=== PATIENT | female | born 1970 | race Caucasian/White ===

== ENCOUNTER → 2017-06-24 | Outpatient (CLI) | payer MEDICARE, OTHER ==
--- NOTE | 2017-06-24 14:24 | XR ---
EXAMINATION TYPE: XR chest 2V DATE OF EXAM: 06/24/2017 COMPARISON: Prior chest x-ray is unavailable HISTORY: Bronchitis TECHNIQUE: Frontal and lateral views of the chest are obtained. FINDINGS: There is no focal air space opacity, pleural effusion, or pneumothorax seen. The cardiac silhouette size is within normal limits. Lung volumes are increased. Bronchial wall thickening is radha pected. The osseous structures are remarkable for left clavicular fracture which is healed in bayon et apposition. IMPRESSION: Correlate for bronchitis, reactive airways disease.
== END ==
LOC: RADXRMAIN 11:56
PROVIDERS: ATTEND Internal Medicine
DX: J20.9 Acute bronchitis, unspecified (principal)
CPT/HCPCS: 71020

== ENCOUNTER → 2018-05-31 | Outpatient (CLI) | payer MEDICARE ==
[2018-05-31 13:27] VITALS: BP 120/72; PULSE 99; RESP 16; TEMP 98.1
== END ==
LOC: PROCWHC3 12:37
PROVIDERS: ATTEND Internal Medicine Infectious Disease
DX: K94.19 Other complications of enterostomy (principal); L24.9 Irritant contact dermatitis, unspecified cause
CPT/HCPCS: 99214

== ENCOUNTER → 2019-02-14 | Outpatient (CLI) | payer MEDICARE, OTHER ==
--- NOTE | 2019-02-14 13:39 | XR ---
EXAMINATION TYPE: XR chest 2V DATE OF EXAM: 02/14/2019 COMPARISON: NONE TECHNIQUE: PA and lateral views submitted. HISTORY: Tobacco use FINDINGS: The lungs are clear and there is no pneumothorax, pleural effusion, or focal pneumonia. Hyperinflat ion the lungs. Hypertrophic and degenerative change of the spine. Chronic left clavicular fracture. IMPRESSION: 1. No acute process. Hyperinflation suggests COPD. Correlate clinically.
== END | disposition home or self-care (01) ==
LOC: RADXRMAIN 13:13
PROVIDERS: ATTEND Internal Medicine
DX: Z72.0 Tobacco use (principal)
CPT/HCPCS: 71046

== ENCOUNTER 2019-02-24 13:33 | Emergency (ER) | payer MEDICARE, OTHER ==
[2019-02-24 14:19] VITALS: BP 122/72; TEMP 98.3
[2019-02-24] MEDS ORDERED: LIDOCAINE 1% INJ 10MG/ML (20 ML MDV) SQ ONE (15:42)
[2019-02-24] MEDS ORDERED: LIDOCAINE/EPINEPHR/TETRACAINE 5 ML BOTTLE TOPICAL ONE (15:52)
[2019-02-24] MEDS ORDERED: CEPHALEXIN 500MG STARTER PACK 4 CAP BTL PO STA (16:10)
[2019-02-24] MEDS ORDERED: SULFAMETH-TMP DS STARTER PACK 2 TAB BTL PO STA (16:10)
--- NOTE | 2019-02-24 16:29 | ED ---
General Adult HPI - General Chief complaint: Skin/Abscess/Foreign Body Stated complaint: lump under arm Time Seen by Provider: 02/24/19 15:24 Source: patient Mode of arrival: ambulatory Limitations: no limitations - History of Present Illness Initial comments: Patient is a 48-year-old who presents emergency Department with a lesion in the left axilla. Patient reports discretionary 2 days ago and when she woke up this when she noticed tenderness and induration in the area. Patient reports the pain is a 9 and is alleviated with palpation and exacerbated with palpation. Patient reports the pain is stabbing and is worse with hot showers. Patient denies any drainage from the site. Patient denies nausea, vomiting, fever, headache, chest pain just an his shortness of breath. Patient denies taking medication to relieve the pain. - Related Data Home Medications Medication Instructions Recorded Confirmed ARIPiprazole [Abilify] 10 mg PO DAILY 05/23/18 05/31/18 ALPRAZolam [Xanax] 0.5 mg PO HS PRN 05/31/18 05/31/18 Albuterol Inhaler [Ventolin Hfa 2 puff INHALATION QID PRN 05/31/18 05/31/18 Inhaler] Citalopram Hydrobromide [CeleXA] 40 mg PO DAILY 05/31/18 05/31/18 Dextroamphetamine/Amphetamine 30 mg PO BID 05/31/18 05/31/18 [Adderall] Fluticasone Nasal [place] [Flonase 1 spray NASAL BID 05/31/18 05/31/18 Nasal [place]] Ibuprofen [Motrin] 800 mg PO DAILY PRN 05/31/18 05/31/18 Loratadine [Claritin] 10 mg PO DAILY 05/31/18 05/31/18 Omeprazole [PriLOSEC] 40 g PO DAILY 05/31/18 05/31/18 lamoTRIgine [LaMICtal] 50 mg PO BID 05/31/18 05/31/18 Previous Rx's Medication Instructions Recorded Cephalexin [Keflex] 500 mg PO Q6HR #40 cap 02/24/19 Sulfamethox-Tmp 800-160Mg [Bactrim 1 each PO Q12HR #20 tab 02/24/19 Ds] Allergies Allergy/AdvReac Type Severity Reaction Status Date / Time aspirin Allergy Anaphylaxis Verified 02/24/19 14:19 polyethylene glycol Allergy Anaphylaxis Verified 02/24/19 14:19 [From Golytely] polyethylene glycol 3350 Allergy Anaphylaxis Verified 02/24/19 14:19 [From Golytely] potassium chloride Allergy Anaphylaxis Verified 02/24/19 14:19 [From Golytely] sodium [From Golytely] Allergy Anaphylaxis Verified 02/24/19 14:19 sodium bicarbonate Allergy Anaphylaxis Verified 02/24/19 14:19 [From Golytely] sodium chloride Allergy Anaphylaxis Verified 02/24/19 14:19 [From Golytely] sodium sulfate Allergy Anaphylaxis Verified 02/24/19 14:19 [From Golytely] Review of Systems ROS Statement: Those systems with pertinent positive or pertinent negative responses have been documented in the HPI. ROS Other: All systems not noted in ROS Statement are negative. Past Medical History Past Medical History: Asthma, GERD/Reflux, Osteoarthritis (OA) Additional Past Medical History / Comment(s): bulging and ruptured disc lumbar spine, crohns disease. Sinus problems. History of Any Multi-Drug Resistant Organisms: None Reported Past Surgical History: Bowel Resection Additional Past Surgical History / Comment(s): ILEOSTOMY. Past Anesthesia/Blood Transfusion Reactions: No Reported Reaction Past Psychological History: ADD/ADHD, Anxiety, Bipolar, Depression, PTSD Smoking Status: Current every day smoker - Past Family History Father Family Medical History: Cancer, Coronary Artery Disease (CAD) Mother Family Medical History: AFIB General Exam - General Exam Comments Initial Comments: General: Well-developed well-nourished distress HEENT: Normocephalic/atraumatic, PERLL, Neck: Supple, nontender, trachea midline Chest/Lungs: Normal respirations, (inferior to the left axilla measuring 4 x 4 centimeters of erythema and 3 cm diameter of induration. 1 cm of fluctuance and no discharge. Cardiac: Regular rate and rhythm, normal S1-S2, no murmurs rubs or gallops Abdomen/GI: Soft nontender, bowel sounds equal or quadrant x4, no guarding, no rebound no CVA tenderness Musculoskeletal: Nontender, full range of motion, no edema, strength equal bilaterally Skin: Warmth, no rashes or lesions, no cyanosis or diaphoresis Neurologic: AAO x 3, CN 2-12 intact, Psychiatric: Mood and affect normal, judgment normal Limitations: no limitations Course Vital Signs 02/24/19 02/24/19 14:17 16:47 Temperature 98.3 F Pulse Rate 98 85 Respiratory 16 18 Rate Blood Pressure 122/72 O2 Sat by Pulse 99 97 Oximetry Procedures - Incision & Drainage Consent Obtained: verbal consent Indication: abscess Site: other (Axilla left) Amount (mLs): 1 (LET) I&D Cleaning Method: Alcohol Wipe Sterile Field Used?: No Scalpel Used: #11 Needle Aspiration Performed?: No Irrigation Performed?: No I&D Drainage Obtained: Pus, Blood Culture Obtained?: No Patient Tolerated Procedure: well Medical Decision Making - Medical Decision Making Patient is a 48-year-old male presents emergency Department with a lesion on the left inferior axilla. The abscess was drained and a lot of pus was removed. No packing is needed. Patient reports that she feels much better after the incision and drainage. Patient was placed on Bactrim and Keflex. Patient advised to follow with primary care. Patient advised to return to emergency Department symptoms worsen. Patient advised to follow proper wound care instructions. Case discussed with physician. Disposition Clinical Impression: Skin abscess Disposition: HOME SELF-CARE Condition: Stable Instructions (If sedation given, give patient instructions): Abscess Incision and Drainage (ED), Abscess (ED) Additional Instructions: Please follow proper wound care structures. Please take prescribed medication as directed. Please follow-up with primary care. Please return to emergency department as of this worsen. Prescriptions: Sulfamethox-Tmp 800-160Mg [Bactrim Ds] 1 each PO Q12HR #20 tab Cephalexin [Keflex] 500 mg PO Q6HR #40 cap Is patient prescribed a controlled substance at d/c from ED?: No Referrals: Michel Tang DO [Primary Care Provider] - 1-2 days Time of Disposition: 16:30
[2019-02-24 16:48] VITALS: PULSE 85; RESP 18
== END 2019-02-24 16:47 | disposition home or self-care (01) ==
LOC: EC 13:33
DX: L02.412 Cutaneous abscess of left axilla (principal); J45.909 Unspecified asthma, uncomplicated; K21.9 Gastro-esophageal reflux disease without esophagitis; F90.9 Attention-deficit hyperactivity disorder, unspecified type; F41.9 Anxiety disorder, unspecified; F32.9 Major depressive disorder, single episode, unspecified; F43.10 Post-traumatic stress disorder, unspecified; F17.200 Nicotine dependence, unspecified, uncomplicated; Z79.899 Other long term (current) drug therapy; Z88.6 Allergy status to analgesic agent; Z88.8 Allergy status to other drugs, medicaments and biological substances; Z53.29 Procedure and treatment not carried out because of patient's decision for other reasons
CPT/HCPCS: 10060; 99283

== ENCOUNTER 2022-04-08 11:10 | Emergency (ER) | payer MEDICARE, OTHER ==
[2022-04-08 12:04] VITALS: TEMP 98.3
[2022-04-08] MEDS ORDERED: ORPHENADRINE 30 MG/ML 2 ML VIAL IM STA (12:10)
[2022-04-08] MEDS ORDERED: HYDROcodone/APAP 5-325MG 1 EACH TAB PO STA (12:11)
--- NOTE | 2022-04-08 12:16 | ED ---
Upper Extremity HPI - General Chief Complaint: Extremity Injury, Upper Stated Complaint: fell - lt arm injury Time Seen by Provider: 04/08/22 12:05 Source: patient Mode of arrival: wheelchair - History of Present Illness Initial Comments: 51-year-old well-appearing female presents to the emergency room with complaints of slipping on a wet step and sliding down a flight of stairs on her buttocks. Patient states that she has left arm pain after hitting it on the railing which gets worse with movement. She also states her tailbone hurts. She is ambulatory with steady gait. Denies hitting her head, no other injuries. Complaint: Injury to:: left, arm -: hour(s) (2) Other Extremity Injury: Arm: Left Severity scale (1-10): 10 Improves With: immobilization Worsens With: movement of extremity Context: fall (Slipped on a step and slid down flight of stairs) Associated Symptoms: other (left buttock pain and tailbone pain) - Related Data Home Medications Medication Instructions Recorded Confirmed ARIPiprazole [Abilify] 10 mg PO DAILY 05/23/18 05/31/18 ALPRAZolam [Xanax] 0.5 mg PO HS PRN 05/31/18 05/31/18 Albuterol Inhaler [Ventolin Hfa 2 puff INHALATION QID PRN 05/31/18 05/31/18 Inhaler] Citalopram Hydrobromide [CeleXA] 40 mg PO DAILY 05/31/18 05/31/18 Dextroamphetamine/Amphetamine 30 mg PO BID 05/31/18 05/31/18 [Adderall] Fluticasone Nasal [place] [Flonase 1 spray NASAL BID 05/31/18 05/31/18 Nasal [place]] Ibuprofen [Motrin] 800 mg PO DAILY PRN 05/31/18 05/31/18 Loratadine [Claritin] 10 mg PO DAILY 05/31/18 05/31/18 Omeprazole [PriLOSEC] 40 g PO DAILY 05/31/18 05/31/18 lamoTRIgine [LaMICtal] 50 mg PO BID 05/31/18 05/31/18 Previous Rx's Medication Instructions Recorded Cephalexin [Keflex] 500 mg PO Q6HR #40 cap 02/24/19 Sulfamethox-Tmp 800-160Mg [Bactrim 1 each PO Q12HR #20 tab 02/24/19 Ds] Cyclobenzaprine [Flexeril] 10 mg PO TID PRN #15 tab 04/08/22 Ibuprofen [Motrin] 800 mg PO Q6HR #30 tab 04/08/22 Allergies Allergy/AdvReac Type Severity Reaction Status Date / Time aspirin Allergy Anaphylaxis Verified 02/24/19 14:19 polyethylene glycol Allergy Anaphylaxis Verified 02/24/19 14:19 [From Golytely] polyethylene glycol 3350 Allergy Anaphylaxis Verified 02/24/19 14:19 [From Golytely] potassium chloride Allergy Anaphylaxis Verified 02/24/19 14:19 [From Golytely] sodium [From Golytely] Allergy Anaphylaxis Verified 02/24/19 14:19 sodium bicarbonate Allergy Anaphylaxis Verified 02/24/19 14:19 [From Golytely] sodium chloride Allergy Anaphylaxis Verified 02/24/19 14:19 [From Golytely] sodium sulfate Allergy Anaphylaxis Verified 02/24/19 14:19 [From Golytely] Review of Systems ROS Statement: Those systems with pertinent positive or pertinent negative responses have been documented in the HPI. ROS Other: All systems not noted in ROS Statement are negative. Past Medical History Past Medical History: Asthma, GERD/Reflux, Osteoarthritis (OA) Additional Past Medical History / Comment(s): bulging and ruptured disc lumbar spine, crohns disease. Sinus problems. History of Any Multi-Drug Resistant Organisms: None Reported Past Surgical History: Bowel Resection Additional Past Surgical History / Comment(s): ILEOSTOMY. Past Anesthesia/Blood Transfusion Reactions: No Reported Reaction Past Psychological History: ADD/ADHD, Anxiety, Bipolar, Depression, PTSD Smoking Status: Current every day smoker Past Alcohol Use History: None Reported Past Drug Use History: Marijuana - Past Family History Father Family Medical History: Cancer, Coronary Artery Disease (CAD) Mother Family Medical History: AFIB General Exam Limitations: no limitations General appearance: alert, in no apparent distress Head exam: Present: atraumatic, normocephalic Eye exam: Absent: scleral icterus, conjunctival injection ENT exam: Present: mucous membranes moist Neck exam: Present: normal inspection, full ROM. Absent: tenderness, meningismus Respiratory exam: Absent: respiratory distress, accessory muscle use Cardiovascular Exam: Present: regular rate GI/Abdominal exam: Present: soft. Absent: distended, tenderness Extremities exam: Present: normal inspection, full ROM, tenderness (Left mid humerus), normal capillary refill. Absent: pedal edema, calf tenderness Left Shoulder Exam: Present: normal inspection, full ROM. Absent: tenderness, ecchymosis, deformity Upper Arm exam: Present: full ROM, tenderness (Left mid humerus). Absent: abrasion, ecchymosis Elbow exam: Present: normal inspection, full ROM. Absent: tenderness, ecchymosis Vascular: Present: normal capillary refill. Absent: vascular compromise Back exam: Present: normal inspection, paraspinal tenderness (left LS spine). Absent: CVA tenderness (R), CVA tenderness (L), rash noted Neurological exam: Present: alert, oriented X3, normal gait Psychiatric exam: Present: normal affect, normal mood Skin exam: Present: warm, intact, other (Bruising to the left inner gluteal cleft). Absent: cyanosis, diaphoretic, petechiae, pallor Course Vital Signs 04/08/22 04/08/22 12:00 13:49 Temperature 98.3 F Pulse Rate 97 91 Respiratory 20 18 Rate Blood Pressure 138/89 149/107 O2 Sat by Pulse 99 95 Oximetry Medical Decision Making - Medical Decision Making Patient slipped down the steps today, presents with complaints of left arm and tailbone pain. No loss of consciousness, no head injury. On physical exam she has no focal neurological deficits and is ambulatory with a steady gait. X-rays of arm and sacrum are negative. I did explain to the patient that this is likely musculoskeletal pain. She is requesting a prescription for Motrin and Flexeril which she states has tolerated both in the past. She was instructed to follow up with her primary care doctor next week. Case discussed with Dr. Philippe. Disposition Clinical Impression: Musculoskeletal pain, Fall (on) (from) other stairs and steps, initial encounter Disposition: HOME SELF-CARE Condition: Good Instructions (If sedation given, give patient instructions): Musculoskeletal Pain (ED) Additional Instructions: Rest, ice and take Tylenol and/or Motrin as needed for pain. Follow-up with the primary care doctor. Return to the emergency room with any new or concerning symptoms. Prescriptions: Cyclobenzaprine [Flexeril] 10 mg PO TID PRN #15 tab PRN Reason: Muscle Spasm Ibuprofen [Motrin] 800 mg PO Q6HR #30 tab Is patient prescribed a controlled substance at d/c from ED?: No Referrals: Michel Tang DO [Primary Care Provider] - 1-2 days Time of Disposition: 13:41
--- NOTE | 2022-04-08 13:07 | XR ---
EXAMINATION TYPE: XR humerus LT DATE OF EXAM: 04/08/2022 CLINICAL HISTORY: Fall injury with pain TECHNIQUE: Two views of the left humerus are obtained. COMPARISON: Left shoulder x-ray March 23, 2013 FINDINGS: There is no acute fracture or dislocation seen in the left humerus. Old fracture deformity of the distal left clavicle is partially imaged. Left elbow joint appears within normal limits. The overlying soft tissue appears within normal limits. IMPRESSION: No acute fracture or dislocation is evident in the left humerus.
--- NOTE | 2022-04-08 13:09 | XR ---
Sacrum and coccyx HISTORY: Trauma and pain 3 views of the sacrum and coccyx Degenerative disc changes are present in the lower lumbar spine. Surgical clips are noted incidentall y. Possible ostomy in the right lower quadrant. Sacrum and coccyx are intact. Bone mineralization and alignment are maintained. There probable facet arthropathy changes in the posterior elements of the lumbosacral junction. IMPRESSION: No acute fracture or subluxation.
[2022-04-08 13:50] VITALS: BP 149/107; PULSE 91; RESP 18
== END 2022-04-08 13:50 | disposition home or self-care (01) ==
LOC: EC 11:10
DX: R29.898 Other symptoms and signs involving the musculoskeletal system (principal); W10.9XXA Fall (on) (from) unspecified stairs and steps, initial encounter; J45.909 Unspecified asthma, uncomplicated; K21.9 Gastro-esophageal reflux disease without esophagitis; M19.90 Unspecified osteoarthritis, unspecified site; F31.9 Bipolar disorder, unspecified; F41.9 Anxiety disorder, unspecified; F17.200 Nicotine dependence, unspecified, uncomplicated; F12.90 Cannabis use, unspecified, uncomplicated; Z88.6 Allergy status to analgesic agent; Z88.8 Allergy status to other drugs, medicaments and biological substances; Z91.02 Food additives allergy status; Z88.2 Allergy status to sulfonamides; Z79.899 Other long term (current) drug therapy; Z79.51 Long term (current) use of inhaled steroids
CPT/HCPCS: 72220; 73060; 99284; 96372; J2360

== ENCOUNTER → 2024-12-12 | Outpatient (CLI) | payer MEDICARE, OTHER ==
--- NOTE | 2024-12-12 15:51 | MM ---
Reason for Exam: Screening (asymptomatic). Last mammogram was performed 12 year(s) and 6 month(s) ago. Patient History: Menarche at age 13. First Full-Term at age 23. Postmenopausal. Risk Values: Rae 5 year model risk: 1.0%. NCI Lifetime model risk: 7.7%. Prior Study Comparison: No prior studies available for comparison. Tissue Density: There are scattered areas of fibroglandular density. Findings: Analyzed By CAD. Suspect a low axillary tail lymph node on the left. Otherwise, there are scattered isodense to low density areas of circumscribed to mostly circumscribed nodularity, right greater than left, in an overall benign pattern. As no priors are available for comparison purposes, short interval follow-up recommended to ensure stability. No suspicious microcalcification or other discrete abnormality is seen. Overall Assessment: Probably benign, BI-RAD 3 Management: Diagnostic Mammogram of both breasts in 6 months. Patient should continue monthly self-breast exams. A clinical breast exam by your physician is recommended on an annual basis. This exam should not preclude additional follow-up of suspicious palpable abnormalities. Note on Rae scores and lifetime risk: 1. A Rae score greater than 3% is considered moderate risk. If this is the case, consider specialist referral to assess eligibility for a risk reducing agent. 2. If overall lifetime risk for the development of breast cancer is 20% or higher, the patient may qualify for future screening with alternating mammogram and breast MRI. [facility], , 12/12/2024 3:48 PM. Electronically signed and approved by: Anayeli Huynh M.D. Radiologist
== END | disposition home or self-care (01) ==
LOC: RADMAMWWP 11:56
PROVIDERS: ATTEND Family Medicine
DX: Z12.31 Encounter for screening mammogram for malignant neoplasm of breast (principal); R92.323 Mammographic fibroglandular density, bilateral breasts; Z78.0 Asymptomatic menopausal state
CPT/HCPCS: 77067